=== PATIENT | female | born 1940 | race Caucasian/White ===

== ENCOUNTER 2022-03-29 16:10 | Emergency (ER) | payer MEDICARE, BC ==
[2022-03-29] MEDS ORDERED: Iopamidol 370 76% 100 ML VIAL FS ONE (16:11)
[2022-03-29 16:44] LABS: #Lymphocytes 1.3 thou/uL (1.20-3.40); #Monocytes 0.3 thou/uL (0.11-0.59); #Neutrophils 1.1 thou/uL (1.40-6.50); %Basophils 1.2 % (0.0-1.0); %Eosinophils 0.7 % (0.0-10.0); %Monocytes 9.6 % (0.0-10.0); %Neutrophils 39.6 % (42.0-75.0); Hemoglobin 15.3 g/dL (12.0-16.0); Mean Corpuscular HGB CONC 32.9 g/dL (32.0-36.0); Mean Corpuscular Hemoglobin 32.5 pg (27.0-31.0); Mean Corpuscular Volume 98.9 fL (78.0-98.0); Mean Platelet Volume 8.7 fL (7.4-10.4); Platelet Count 160 thou/uL (130-400); RBC Distribution Width 12.1 % (11.5-14.5); White Blood Cell (WBC) Count 2.7 thou/uL (4.8-10.8)
[2022-03-29 17:00] LABS: ALT (SGPT) 63 U/L (8-55); AST (SGOT) 51 U/L (5-34); Albumin 4.5 g/dL (3.4-4.8); Alkaline Phosphatase 58 U/L (40-110); Anion Gap 16 mmol/L (10-20); BUN (Urea Nitrogen) 19 mg/dL (9.8-20.1); Bilirubin, Total 1.4 mg/dL (0.2-1.2); Calc. Creatinine Clearance 0 mL/min (70-130); Calcium 9.5 mg/dL (7.8-10.44); Carbon Dioxide 22 mmol/L (23-31); Chloride 104 mmol/L (98-107); Estimated GFR 76; Globulin 3.5 g/dL (2.4-3.5); Glucose 122 mg/dL (83-110); Potassium 3.9 mmol/L (3.5-5.1); Sodium 138 mmol/L (136-145)
[2022-03-29 17:52] LABS: SARS-CoV-2 NAA Rapid Test DETECTED (NotDetected)
[2022-03-29] MEDS ORDERED: cefTRIAXone\\ROCEPHIN 2 GM VIAL ONE (18:21)
[2022-03-29] MEDS ORDERED: Sodium Chloride 0.9% 100 ML ONE (18:21)
[2022-03-29] MEDS ORDERED: Azithromycin 500 MG VIAL ONE (20:39)
[2022-03-30] MEDS ORDERED: Dexamethasone 10 MG/ML VIAL ONE (11:05)
[2022-03-30 14:35] LABS: #Lymphocytes 0.5 thou/uL (1.20-3.40); #Monocytes 0.1 thou/uL (0.11-0.59); #Neutrophils 1.4 thou/uL (1.40-6.50); %Basophils 0.3 % (0.0-1.0); %Eosinophils 0.3 % (0.0-10.0); %Lymphocytes 25.6 % (21.0-51.0); %Monocytes 3.6 % (0.0-10.0); %Neutrophils 70.3 % (42.0-75.0); Hemoglobin 14.2 g/dL (12.0-16.0); Mean Corpuscular HGB CONC 33.2 g/dL (32.0-36.0); Mean Corpuscular Hemoglobin 32.6 pg (27.0-31.0); Mean Platelet Volume 8.6 fL (7.4-10.4); Platelet Count 146 thou/uL (130-400); Red Blood Cell (RBC) Count 4.37 mill/uL (4.20-5.40)
[2022-03-30 14:43] LABS: PTT 31.9 sec (22.9-36.1); Prothrombin Time 13.3 sec (12.0-14.7)
[2022-03-30 14:53] LABS: ALT (SGPT) 87 U/L (8-55); AST (SGOT) 64 U/L (5-34); Alkaline Phosphatase 51 U/L (40-110); Anion Gap 12 mmol/L (10-20); BUN (Urea Nitrogen) 10 mg/dL (9.8-20.1); Bilirubin, Total 1.1 mg/dL (0.2-1.2); Calc. Creatinine Clearance 0 mL/min (70-130); Carbon Dioxide 23 mmol/L (23-31); Chloride 107 mmol/L (98-107); Estimated GFR 89; Glucose 156 mg/dL (83-110); Sodium 138 mmol/L (136-145)
== END 2022-03-30 15:20 | disposition short-term general hospital (02) ==
LOC: BURERS 16:10
DX: U07.1 COVID-19 (principal); K80.20 Calculus of gallbladder without cholecystitis without obstruction; R09.02 Hypoxemia; I44.0 Atrioventricular block, first degree
CPT/HCPCS: 36415; 71045; 71275; 80053; 83605; 83880; 84484; 85025; 85610; 85730; 87040; 93005; 94760; 96374; 96375; J0456; J0696; J1100; J3490; Q9967; U0002

== ENCOUNTER 2022-09-18 06:49 | Emergency (ER) | payer MEDICARE, BC ==
[2022-09-18 07:27] LABS: Bilirubin Negative (Negative); Blood, Urine Small (Negative); Clarity Cloudy (Clear); Glucose, Urine (Dipstick) Negative (Negative); Ketone, Urine Negative (Negative); Leukocyte Moderate (Negative); Nitrite Negative (Negative); Protein, Urine (Dipstick) Negative (Neg-Trace); Urobilinogen 0.2 mg/dL (Less than 2)
[2022-09-18 07:34] LABS: Bacteria/HPF 1+ HPF (None Seen); Oval Fat Bodies/HPF 1+ HPF (None Seen); RBC/HPF 0-3 HPF (0-3); Squamous Epithelial 0-3 HPF (0-3); WBC/HPF Greater Than 50 HPF (0-3)
[2022-09-18 07:36] LABS: Specific Gravity, Urine 1.008 (1.002-1.036)
[2022-09-18] MEDS ORDERED: Lidocaine 1% PF 5 ML VIAL ONE (08:20)
[2022-09-18] MEDS ORDERED: cefTRIAXone (ROCEPHIN) 1 GM VIAL ONE (08:20)
== END 2022-09-18 08:30 | disposition home or self-care (01) ==
LOC: BURERS 06:49
DX: N39.0 Urinary tract infection, site not specified (principal)
CPT/HCPCS: 81003; 81015; 87077; 87086; 87186; 96372; 99283; J0696